=== PATIENT | male | born 1985 | race African-American/Black ===

== ENCOUNTER 2024-03-12 07:40 | Emergency (ER) | payer SELFPAY ==
[2024-03-12 07:44] VITALS: BP 118/73; PULSE 101; RESP 18; TEMP 99.3; BMI 27.0
[2024-03-12] MEDS ORDERED: ACETAMINOPHEN 500 MG TABLET (FP) ONE (08:20)
[2024-03-12] MEDS: ACETAMINOPHEN 500 MG TABLET (FP) PO ONE (08:22)
== END 2024-03-12 09:20 | disposition home or self-care (01) ==
LOC: JERFT 07:40
DX: R09.81 Nasal congestion (principal); L02.415 Cutaneous abscess of right lower limb; J06.9 Acute upper respiratory infection, unspecified; Z20.822 Contact with and (suspected) exposure to COVID-19
CPT/HCPCS: 0241U-QW; 99283-25